=== PATIENT | male | born 1955 | race Caucasian/White ===

== ENCOUNTER 2022-06-03 07:55 | Emergency (ER) | payer OTHER, SELFPAY ==
[2022-06-03 08:06] VITALS: BP 139/83; PULSE 62; RESP 19; TEMP 36.7; O2SAT 95; BMI 30.8
--- NOTE | 2022-06-03 08:07 | ED.EXTPRO ---
HPI - Extremity Problem General Chief complaint: Extremity Problem,Nontraumatic Stated complaint: Inflamed vein in leg- [facility] thinks clot Time Seen by Provider: 06/03/22 08:07 History of Present Illness HPI Narrative: Patient is a healthy 66-year-old male traveling from [place]. He reports varicose vein on his left medial thigh by his knee becoming more inflamed and painful. Been going on for last 2 days. He drove up here from [place]. He also recently got over COVID infection. Afebrile. Related Data Home Medications Medication Instructions Recorded Confirmed No Known Home Medications 06/03/22 06/03/22 Allergies Allergy/AdvReac Type Severity Reaction Status Date / Time No Known Drug Allergies Allergy Unverified 06/03/22 07:15 Review of Systems Review of Systems Narrative: GENERAL: Denies chills,fever HEENT: Denies throat pain RESPIRATORY: Denies dyspnea, cough, wheezing CARDIOVASCULAR: Denies chest pain, palpitations GASTROINTESTINAL: Denies nausea, vomiting MUSCULOSKELETAL: Denies extremity pain, injury SKIN: See HPI NEUROLOGIC: Denies weakness, dizziness, headache, numbness 8 point review of systems is negative except for those stated above and HPI Patient History Social History Smoking Status: Never smoker Smoking Status: Never smoker Exam Initial Vital Signs Initial Vital Signs: Vital Signs Temperature 98.1 F 06/03/22 08:06 Pulse Rate 62 06/03/22 08:06 Respiratory Rate 19 06/03/22 08:06 Blood Pressure 139/83 06/03/22 08:06 Pulse Oximetry 95 06/03/22 08:06 Oxygen Delivery Method 06/03/22 08:06 GENERAL: Alert pleasant 66-year-old male CARDIOVASCULAR: peripheral pulses in tact, cap refill <2 sec RESPIRATORY: No respiratory distress, speaks in full sentences without difficulty EXTREMITIES: Normal range of motion, no clubbing or edema. Neurovascularly intact No calf pain or swelling no pain posterior to the knee NEUROLOGICAL: Cranial nerves II through XII grossly intact. Normal gait and speech. SKIN: Erythema medial thigh over tortuous varicose vein Course Orders Ordered: ED Orders 06/03/22 08:12 US periph venous low extrem lt Stat Vital Signs Vital signs: Vital Signs - 8 hr 06/03/22 08:06 Temperature 98.1 F Pulse Rate 62 Respiratory Rate 19 Blood Pressure 139/83 Pulse Oximetry 95 Oxygen Delivery Method Room Air MDM - Extremity (Nontraumatic) Imaging Data US - DVT: Radiologist's Impression: Signed Patient: Michael Clements MR#: [id number] : 1955 Acct:[id number] Age/Sex: 66 / M Date of Service: 06/03/22 Loc: ED Accession Number: [id number] ?? Procedure: US periph venous low extrem lt Ordering Provider: Laura Cooper D.O. PROCEDURE:? US PERIPH VENOUS LOW EXTREM LT ? INDICATIONS:? Inflamed vein ? TECHNIQUE:? Real-time imaging, as well as color and pulse Doppler interrogation, were performed of the lower extremity deep veins from the inguinal ligament to the popliteal fossa.? ? COMPARISON:? None. ? FINDINGS:? The common femoral, femoral and popliteal veins are normally compressible, and free of intraluminal thrombus.? Color and pulse Doppler demonstrate normal phasic intraluminal flow.? There is normal augmentation response to distal compression maneuver. ? ? Thrombosed varicose vein at the left medial knee in the area of skin erythema.? Adjacent greater saphenous vein appears patent. ? IMPRESSION:? 1. No left lower extremity DVT. ? 2. Superficial thrombophlebitis at the left medial knee varicose vein. ? ? Dictated by: John Perez M.D. on 06/03/2022 at 9:13 ? ? [facility] Narrative Medical decision making narrative: Patient is found superficial thrombophlebitis. Without concurrent DVT. Supportive care and says compression. All of this has been discussed with patient Discharge Plan Departure Patient Disposition: Home Clinical Impression: Thrombophlebitis Instructions: DI for Superficial Thrombophlebitis Activity Restrictions/Additional Instructions: *You have been diagnosed with superficial thrombophlebitis *What to do: You do have an inflamed vein on the inside of her leg. There is no blood clot. For now NSAIDs, compression socks ice or heat *Continue to take medications as directed Ibuprofen 600 mg every 6 hours if needed for [id number] pain *Follow up with your primary care provider in 2-3 days or call [phone] *Return to ER if you should have increasing pain swelling calf pain redness fever or any new, worsening or concerning symptoms Prescriptions: No Action No Known Home Medications
--- NOTE | 2022-06-03 08:12 | DI.US.S_ITS ---
PROCEDURE: US PERIPH VENOUS LOW EXTREM LT INDICATIONS: Inflamed vein TECHNIQUE: Real-time imaging, as well as color and pulse Doppler interrogation, were performed of the lower extremity deep veins from the inguinal ligament to the popliteal fossa. COMPARISON: None. FINDINGS: The common femoral, femoral and popliteal veins are normally compressible, and free of intraluminal thrombus. Color and pulse Doppler demonstrate normal phasic intraluminal flow. There is normal augmentation response to distal compression maneuver. Thrombosed varicose vein at the left medial knee in the area of skin erythema. Adjacent greater saphenous vein appears patent. IMPRESSION: 1. No left lower extremity DVT. 2. Superficial thrombophlebitis at the left medial knee varicose vein. Dictated by: John Perez M.D. on 06/03/2022 at 9:13 Approved by: John Perez M.D. on 06/03/2022 at 9:16
[2022-06-03 09:31] VITALS: BP 132/78; PULSE 65; O2SAT 100
== END 2022-06-03 09:31 | disposition home or self-care (01) ==
PROVIDERS: Emergency Provider Emergency Medicine
DX: I80.9 Phlebitis and thrombophlebitis of unspecified site (principal)
CPT/HCPCS: 93971; 99283